=== PATIENT | female | born 1980 | race Native Hawaiian/Other Pacific Islander ===

== ENCOUNTER 2022-04-05 16:20 | Emergency (ER) | payer MEDICAID ==
[~2022-04-05] VITALS: Ht 152.4 cm; Wt 104.5 kg
[~2022-04-05 16:20] MED LIST: IPRATROPIUM BROM3 M1 IH; TUMS500 MG PO
[2022-04-05 18:23] LABS: BASO % 0.3 % (0.0-2.0); EOS # 0.3 K/mm3 (0.0-0.7); EOS % 4.2 % (0.0-4.0); GRAN # 4.3 K/mm3 (1.4-6.5); GRAN % 69.3 % (42.2-75.2); LYMPH # 1.1 K/mm3 (1.2-3.4); LYMPH % 17.6 % (20.0-51.0); MEAN CELL VOLUME 103 fl (80.0-100.0); MEAN CORPUSCULAR HGB CONC 31 g/dl (33.0-37.0); MEAN PLATELET VOLUME 9.7 fl (7.4-10.4); MONO # 0.5 K/mm3 (0.1-0.6); MONO % 8.1 % (1.7-9.3); PLATELET COUNT 154 K/mm3 (130-400); RED BLOOD COUNT 2.01 M/mm3 (4.10-5.30); REDCELL DISTRIBUTION WIDTH-CV 18.6 % (11.5-14.5)
[2022-04-05 18:25] LABS: HEMATOCRIT 20.6 % (37.0-47.0); HEMOGLOBIN 6.3 g/dl (12.5-16.0); MEAN CORPUSCULAR HEMOGLOBIN 31 pg (27-31)
[2022-04-05 18:32] LABS: INR 1.2 (0.8-3.0); PROTHROMBIN TIME 14.3 SECONDS (9.7-12.8)
[2022-04-05 18:52] LABS: ARTERIAL BLD GAS O2 SATURATION 99.1 % (92-100); ARTERIAL BLD GAS TCO2 CT 9.3; ARTERIAL BLOOD GAS HCO3 8.5 meq/L (22-26); ARTERIAL BLOOD GAS PCO2 26.1 mmHg (35-45)
[2022-04-05 18:54] LABS: ARTERIAL BLOOD GAS PO2 202.6 mmHg (80-100); ARTERIAL BLOOD GAS pH 7.13 (7.35-7.45)
[2022-04-05 18:56] LABS: TROPONIN-I 0.011 ng/mL (0.00-0.033)
[2022-04-05 18:58] LABS: ALANINE AMINOTRANSFERASE 7 U/L (0-55); ALBUMIN 3.1 gm/dL (3.5-5.0); ALKALINE PHOSPHATASE 81 U/L (40-150); ANION GAP 18 mmol/L (7-16); AST,SGOT 17 U/L (5-34); BILIRUBIN,TOTAL 0.5 mg/dL (0.2-1.2); CALCIUM 6.1 mg/dL (8.4-10.2); CHLORIDE 113 mmol/L (98-107); CREATININE, serum 10.82 mg/dL (0.57-1.11); GLUCOSE 81 mg/dL (70-99); POTASSIUM 4.4 mmol/L (3.5-4.5); SODIUM 139 mmol/L (136-145); TOTAL PROTEIN 8.2 gm/dL (6.2-8.1)
[2022-04-05 19:03] LABS: BLOOD UREA NITROGEN > 125 mg/dL (7-19)
[2022-04-05 19:05] LABS: CARBON DIOXIDE 8 mmol/L (22-29)
[2022-04-05 21:10] VITALS: BP 176/81; PULSE 72; TEMP 97.8
[2022-04-05 21:26] VITALS: BP 146/78; PULSE 72; TEMP 98
[2022-04-05 22:37] VITALS: BP 142/85; PULSE 74; TEMP 98.2
[2022-04-05 23:10] VITALS: BP 146/87; PULSE 76; TEMP 98.4
[2022-04-06 00:46] VITALS: BP 144/84; PULSE 85; TEMP 98.4
== END 2022-04-06 00:47 | disposition home or self-care (01) ==
LOC: COL.ER 16:20
PROVIDERS: Nurse Practitioner
DX: I12.0 Hypertensive chronic kidney disease with stage 5 chronic kidney disease or end stage renal disease (principal); E11.22 Type 2 diabetes mellitus with diabetic chronic kidney disease; N18.6 End stage renal disease; D63.1 Anemia in chronic kidney disease; Z91.15 Patient's noncompliance with renal dialysis; Z99.2 Dependence on renal dialysis; Z28.310 Unvaccinated for COVID-19
CPT/HCPCS: P9016

== ENCOUNTER 2022-04-17 12:18 | Inpatient (IN) | payer MEDICAID ==
[~2022-04-17] VITALS: Ht 154.9 cm; Wt 100.1 kg
[2022-04-17] VITALS (194 sets, daily range): BP systolic 108–148; BP diastolic 47–67; PULSE 76–89; TEMP 97.3–97.4; O2SAT 92–100
--- NOTE | 2022-04-17 12:55 | NUR ---
Blood sugar check and is 74. Patient shaky and sweaty. NARINDER Wetzel notified.
[2022-04-17 13:25] LABS: BASO % 0.4 % (0.0-2.0); EOS # 0.2 K/mm3 (0.0-0.7); EOS % 2.3 % (0.0-4.0); GRAN # 5.7 K/mm3 (1.4-6.5); GRAN % 73.4 % (42.2-75.2); LYMPH # 1.3 K/mm3 (1.2-3.4); LYMPH % 16.9 % (20.0-51.0); MEAN CELL VOLUME 102 fl (80.0-100.0); MEAN CORPUSCULAR HGB CONC 30 g/dl (33.0-37.0); MEAN PLATELET VOLUME 10.2 fl (7.4-10.4); MONO # 0.5 K/mm3 (0.1-0.6); MONO % 6.4 % (1.7-9.3); PLATELET COUNT 171 K/mm3 (130-400); RED BLOOD COUNT 2.05 M/mm3 (4.10-5.30); REDCELL DISTRIBUTION WIDTH-CV 18.3 % (11.5-14.5)
[2022-04-17 13:30] LABS: HEMATOCRIT 20.8 % (37.0-47.0); HEMOGLOBIN 6.3 g/dl (12.5-16.0); MEAN CORPUSCULAR HEMOGLOBIN 31 pg (27-31)
--- NOTE | 2022-04-17 13:35 | NUR ---
Received critical value from venous blood gases. Dr. Rea and NARINDER Tipton notified.
[2022-04-17 13:42] LABS: ANION GAP 19 mmol/L (7-16); CHLORIDE 112 mmol/L (98-107); GLUCOSE 77 mg/dL (70-99); SODIUM 137 mmol/L (136-145)
[2022-04-17 13:45] LABS: BLOOD UREA NITROGEN > 125 mg/dL (7-19)
[2022-04-17 13:48] LABS: CARBON DIOXIDE 6 mmol/L (22-29)
[2022-04-17 13:49] LABS: CALCIUM 5.7 mg/dL (8.4-10.2)
[2022-04-17 15:03] LABS: ALBUMIN 2.9 gm/dL (3.5-5.0); BILIRUBIN,TOTAL 0.6 mg/dL (0.2-1.2); CREATININE, serum 13.27 mg/dL (0.57-1.11); MAGNESIUM 1.8 mg/dL (1.6-2.6); PHOSPHOROUS 11.2 mg/dL (2.3-4.7); TOTAL PROTEIN 7.3 gm/dL (6.2-8.1)
[2022-04-17 15:06] LABS: CALCIUM 5.4 mg/dL (8.4-10.2)
--- NOTE | 2022-04-17 16:00 | NUR ---
PT ARRIVED FROM AMBULATORY. PT PLACED ON MONITORS. PT POOR HISTORIAN. PT REPORTS LAST DIALYSIS 01/2022. PT REPORTS SHE DOES NOT HAVE A PCP AND DOES NOT TAKE ORAL MEDICATIONS. PT RFEPORTS ONLY USING NEBULIZER AT HOME PRN, NO OTHER MEDICATIONS TAKEN DAILY OR PRN. PROVIDERS NOTIFIED OF PT'S ARRIVAL TO UNIT.
[2022-04-17 19:28] LABS: CREATININE, serum 13.36 mg/dL (0.57-1.11); POTASSIUM 4.9 mmol/L (3.5-4.5)
[2022-04-17 19:30] LABS: CALCIUM 5.9 mg/dL (8.4-10.2)
--- NOTE | 2022-04-17 19:35 | NUR ---
patient trasnferred to surgical floor at 192. dropped off at dialysis with kelly howell at 1930.
[2022-04-17 21:35] LABS: CALCIUM 7.1 mg/dL (8.4-10.2); CREATININE, serum 7.59 mg/dL (0.57-1.11); POTASSIUM 3.2 mmol/L (3.5-4.5)
[2022-04-17 22:43] LABS: HEMATOCRIT 20.9 % (37.0-47.0); HEMOGLOBIN 6.8 g/dl (12.5-16.0)
[2022-04-18] VITALS (20 sets, daily range): BP systolic 126–157; BP diastolic 51–89; PULSE 70–90; TEMP 97.8–98.9
[2022-04-18 06:34] LABS: BASO % 0.2 % (0.0-2.0); EOS # 0.1 K/mm3 (0.0-0.7); EOS % 2.6 % (0.0-4.0); GRAN # 3.6 K/mm3 (1.4-6.5); GRAN % 78.5 % (42.2-75.2); LYMPH # 0.5 K/mm3 (1.2-3.4); MEAN CORPUSCULAR HGB CONC 32 g/dl (33.0-37.0); MEAN PLATELET VOLUME 9.9 fl (7.4-10.4); MONO # 0.4 K/mm3 (0.1-0.6); MONO % 8.3 % (1.7-9.3); PLATELET COUNT 149 K/mm3 (130-400); REDCELL DISTRIBUTION WIDTH-CV 18.6 % (11.5-14.5)
[2022-04-18 06:39] LABS: HEMATOCRIT 19.8 % (37.0-47.0); HEMOGLOBIN 6.4 g/dl (12.5-16.0); MEAN CELL VOLUME 94 fl (80.0-100.0); MEAN CORPUSCULAR HEMOGLOBIN 30 pg (27-31)
[2022-04-18 06:50] LABS: CALCIUM 6.6 mg/dL (8.4-10.2); CREATININE, serum 7.79 mg/dL (0.57-1.11); PHOSPHOROUS 6.3 mg/dL (2.3-4.7); POTASSIUM 3.2 mmol/L (3.5-4.5)
--- NOTE | 2022-04-18 10:13 | NUR ---
DANA met with the patient to discuss discharge plan. The patient was able to answer some of DANA's questions. The patient lives in [place] with her family. She reports independence with ADLs. It is undetermined if the patient has a PCP. She was just established with Medicaid. The patient has her sister, Jody (ph#[phone]), as her person to notify and next of kin. The patient states that she is not and has one child, Staci, that is [id number]. The patient states that she was set up to receive dialysis on M//. SW attempted to contact the patient's sister. The mailbox was full and DANA was unable to leave a message. DANA contacted Amalia at [facility] to follow up on if the patient is set up there. Amalia reports that the patient was just set up with them and was suppose to start dialysis there today. She states that the patient showed up on Saturday to get dialysis, but she had no access or CVC catheter placed. The patient is having a dialyis catheter placed while here. Amalia states that the patient's chair time is M/W/F at 1130. Amalia asked that we keep her updated on the patient's discharge date. Amalia ph#[phone]. *Discharge plan: home with family*
[2022-04-18 10:14] LABS: CALCIUM 6.6 mg/dL (8.4-10.2); CREATININE, serum 8.14 mg/dL (0.57-1.11); POTASSIUM 3.2 mmol/L (3.5-4.5)
--- NOTE | 2022-04-18 14:46 | NUR ---
Jessica: Church Situation: Rotary Bar Operator stopped by room on rounds Background: PT was resting Assessment: Pt has no needs and appreciated the visit Recommendation: Rotary Bar Operator will follow up as needed
[2022-04-18 15:07] LABS: BASO % 0.6 % (0.0-2.0); EOS # 0.2 K/mm3 (0.0-0.7); EOS % 3.1 % (0.0-4.0); GRAN % 73.3 % (42.2-75.2); LYMPH # 0.6 K/mm3 (1.2-3.4); MEAN CELL VOLUME 93 fl (80.0-100.0); MEAN CORPUSCULAR HGB CONC 33 g/dl (33.0-37.0); MEAN PLATELET VOLUME 9.6 fl (7.4-10.4); MONO # 0.6 K/mm3 (0.1-0.6); MONO % 11.6 % (1.7-9.3); PLATELET COUNT 151 K/mm3 (130-400); RED BLOOD COUNT 2.68 M/mm3 (4.10-5.30); REDCELL DISTRIBUTION WIDTH-CV 18.4 % (11.5-14.5)
[2022-04-18 15:14] LABS: CALCIUM 7.8 mg/dL (8.4-10.2); CREATININE, serum 4.28 mg/dL (0.57-1.11); POTASSIUM 3.2 mmol/L (3.5-4.5)
[2022-04-18 15:18] LABS: HEMOGLOBIN 8.2 g/dl (12.5-16.0); MEAN CORPUSCULAR HEMOGLOBIN 31 pg (27-31)
[2022-04-18 18:05] LABS: CALCIUM 7.8 mg/dL (8.4-10.2); CREATININE, serum 4.33 mg/dL (0.57-1.11); POTASSIUM 3.3 mmol/L (3.5-4.5)
[2022-04-18 22:19] LABS: CALCIUM 7.1 mg/dL (8.4-10.2); CREATININE, serum 4.97 mg/dL (0.57-1.11)
[2022-04-19 00:06] VITALS: BP 114/45; PULSE 88; TEMP 97.8
--- NOTE | 2022-04-19 03:03 | NUR ---
PATIENT IN BED. ALERT AND ORIENTED. DENIES PAIN. INT R UPPER ARM PATENT AND FLUSHED. FISTULA TO L ARM HAS THRILL AND BRUIT PRESENT. L IJ DIALYSIS CATH CDI.
[2022-04-19 04:06] VITALS: BP 118/43; PULSE 84; TEMP 98.3
[2022-04-19 07:48] VITALS: BP 151/69; PULSE 79; TEMP 98.8
--- NOTE | 2022-04-19 08:00 | NUR ---
PATIENT IS A&O. PRIMARY LANGUAGE IS ZIMBABWEAN. PATIENT DOES SPEAK CUBAN PRETTY WELL AND IS ABLE TO VERBALIZE UNDERSTANDING DURING ASSESSMENT. PATIENT HAS HX OF CKD AND REPORTS SHE WAS NOT ABLE TO AFFORD HER DIALYSIS TREATMENTS AND STOPPED GOING IN JANUARY. ON ADMIT, PATIENT'S CREATININE WAS 13.40 AND IS NOW 4.97 AFTER GETTING DIALYSIS THE LAST TWO DAYS. PATIENT HAS A LEFT UPPER ARM FISTULA WITH GOOD BRUITT & THRILL. PATIENT REPORTS THE FISTULA HAS NOT NEED UESED YET. LEFT CHEST HD CATH TO INT. RIGHT UA IV TO INT. PATIENT IS NON-COMPLIENT WITH HER RENAL DIET DUE TO HER CULTURAL. FAMILY BRINGS IN ALL HER FOOD. VSS ON TELE. HEAD TO TOE ASSESSMENT COMPLETE. PT/OT CONSULTED. PATIENT INDEPENDENT IN ROOM. SCD'S CURRENTLY OFF. NO OTHER NEEDS AT THIS TIME. CALL LIGHT IN REACH.
[2022-04-19 11:32] VITALS: BP 149/78; PULSE 72; TEMP 98.6
--- NOTE | 2022-04-19 12:00 | NUR ---
PATIENT TRANSFERING DOWN TO MEDICAL UNIT, ROOM 319. CALLED REPORT TO GATITO DUARTE. PATIENT AWARE OF TRANSFER AND PERSONAL BELONGINGS MOVED TO 319. PATIENT ESCORTED DOWN VIA WC.
--- NOTE | 2022-04-19 12:18 | NUR ---
PT TRANSFERED TO ROOM FROM MEDICAL UNIT. PT SITTING UP ON COUCH IN ROOM ON ROOM AIR. PT STATES NO PAIN/NEEDS/CONCERNS AT THIS TIME. PT STATES THAT SHE HAS FOOD AT BEDSIDE AND DOES NOT NEED LUNCH. CALL LIGHT WAS GIVEN TO PT AND ORIENTED TO USE. PT VOICES UNDERSTANDING.
[2022-04-19 15:30] VITALS: BP 166/77; PULSE 70; TEMP 98.4
--- NOTE | 2022-04-19 18:30 | NUR ---
PT SITTING UP IN BED ON ROOM AIR. PT STATES THAT SHE IS DONE WITH DINNER TRAY. TRAY WAS REMOVED. PT STATES NO OTHER NEEDS/CONCERNS AT THIS TIME. CALL LIGHT IS WITHIN REACH.
[2022-04-19 20:19] VITALS: BP 153/71; PULSE 79; TEMP 98.5
[2022-04-20] VITALS (18 sets, daily range): BP systolic 108–171; BP diastolic 45–92; PULSE 75–102; TEMP 97.8–99.3
--- NOTE | 2022-04-20 05:15 | NUR ---
ASSESSMENT COMPLETE FOR [employer]. PT RESTING IN BED NAPPING. PT DENIED GENERAL PAIN, CHEST PAIN, PALPITATIONS, SOB, N,V,D OR DIZZINESS. PT HAD AN UNEVENTFUL NIGHT. PT EXPRESSED NO ADDITIONAL NEEDS AT THIS TIME. CALL LIGHT WITHIN REACH.
[2022-04-20 06:59] LABS: BASO % 0.4 % (0.0-2.0); EOS # 0.2 K/mm3 (0.0-0.7); EOS % 3.8 % (0.0-4.0); GRAN # 2.9 K/mm3 (1.4-6.5); GRAN % 58.6 % (42.2-75.2); LYMPH # 1.1 K/mm3 (1.2-3.4); LYMPH % 22.4 % (20.0-51.0); MEAN CELL VOLUME 96 fl (80.0-100.0); MEAN CORPUSCULAR HGB CONC 32 g/dl (33.0-37.0); MEAN PLATELET VOLUME 10.3 fl (7.4-10.4); MONO # 0.7 K/mm3 (0.1-0.6); MONO % 14.6 % (1.7-9.3); PLATELET COUNT 145 K/mm3 (130-400); REDCELL DISTRIBUTION WIDTH-CV 18.3 % (11.5-14.5)
[2022-04-20 07:17] LABS: CALCIUM 6.8 mg/dL (8.4-10.2); CREATININE, serum 6.5 mg/dL (0.57-1.11); HEMATOCRIT 22.1 % (37.0-47.0); MEAN CORPUSCULAR HEMOGLOBIN 30 pg (27-31); POTASSIUM 3.2 mmol/L (3.5-4.5)
--- NOTE | 2022-04-20 08:10 | NUR ---
PT SITTING UP IN BED FINISHING BREAKFAST. PT STATES NO PAIN/DISCOMFORT AT THIS TIME. INFORMED PT THAT SHE WOULD BE GOING TO DIALYSIS TODAY. PT VOICES UNDERSTANDING. PT STATES NO NEEDS/CONCERNS AT THIS TIME. CALL LIGHT IS WITHIN REACH.
--- NOTE | 2022-04-20 15:15 | NUR ---
PT OFF FLOOR TO SURG
--- NOTE | 2022-04-20 15:21 | NUR ---
Hospitalist advised patient will discharge today after her dialysis cath is placed. DANA contacted [facility] RN and provided update. DANA also faxed clinical updates. DANA was contacted by Ghislaine Neuroradiologist through [employer] and SW provided discharge update.
[2022-04-20] MEDS ORDERED: SODIUM BICARBO650 MG PO ×2 (16:31)
--- NOTE | 2022-04-20 16:50 | NUR ---
PT RETURNED FROM SURG. DRESSING TO LEFT COLLARBONE AREA IS DRY AND INTACT. PT STATES NO PAIN/ DISCOMFORT AT THIS TIME. PT WAS PUT ON VITAL MACHINE AND STARTED ON Q15 VITIALS. PT STATES SHE WOULD LIKE TO HAVE SOME DINNER. DINNNER TRAY WAS ORDERED FOR HER. NO OTHER NEEDS/CONCERNS WERE VOICED. CALL LIGHT IS WITHIN REACH.
--- NOTE | 2022-04-20 18:22 | NUR ---
PT SITTING UP ON COUCH IN ROOM ON ROOM AIR. DRESSING TO LEFT TUNNELED DIALYSIS CATH IS DRY AND INTACT. PT STATES NO PAIN/DISCOMFORT AT THIS TIME. DELORES TUCKER STATES THAT PT WILL BE DISCHARGED WHEN RETURNED FROM SURG, WAS TOLD TO CALL WHEN PT RETURNED TO FLOOR. WAS CALLED AND HE STATES THAT BECAUSE IT IS SO LATE AND SHE JUST GOT OUT OF SURG THEN WE WILL WAIT UNTIL IN THE AM. PT WAS INFORMED AND VOICED UNDERSTANDING. PT GOT DINNER TRAY AND TOLERATED WELL. PT STATES NO NEEDS/CONCERNS AT THIS TIME. CALL LIGHT IS WITHIN REACH.
--- NOTE | 2022-04-20 21:14 | NUR ---
PT LAYING IN BED RESTING QUIETLY. PT DENIES ANY PAIN AT THIS TIME. DIALYSIS ACCESS TO LEFT CHEST NOTED. COVERED WITH GAUZE. SUTURES INTACT. NO REDNESS NOTED.
[2022-04-21 04:34] VITALS: BP 107/60; PULSE 96; TEMP 98.8
[2022-04-21 07:24] VITALS: BP 122/56; PULSE 85; TEMP 98.6
--- NOTE | 2022-04-21 08:43 | NUR ---
PT SITTING UP IN BED. MORNING MEDICATIONS GIVEN. SHIFT ASSESSMENT COMPLETED. PT DENIES ANY PAIN OR NEEDS. IS EAGER FOR D/C, UPDATED PT ON POC. CONTINUING TO MONITOR.
[2022-04-21 11:27] VITALS: BP 118/63; PULSE 83; TEMP 98.4
--- NOTE | 2022-04-21 11:27 | NUR ---
SW tried to contact Amalia at [facility] @11:28 AM inform her that pt is DC today. Amalia voicemail is full and no message was left. I will try back later.
[2022-04-21] MEDS ORDERED: PHOS LO PO (12:24)
--- NOTE | 2022-04-21 13:23 | NUR ---
DISCHARGE INSTRUCTION GIVEN, ALL QUESTIONS GIVEN. IV D/C. TELE D/C. PT ESCORTED DOWN WITH PERSONAL BELONGINGS. WILL D/C FROM SYSTEM.
--- NOTE | 2022-04-21 15:06 | NUR ---
THIS RN WAS CONTACTED BY DR. ALEJO AND ASKED TO NOTIFY PT TO KEEP DIALYSIS CATH AWAY FROM WATER. THIS RN CONTACTED PT'S FAMILY MEMBER AND INFORMED THEM OF THIS.
== END 2022-04-21 13:24 | disposition home or self-care (01) | DRG 673 ==
LOC: SDCO 12:18 → MEDICAL 17:38 → SURG 17:38 → ICU 17:38 → SURG 19:28 → MEDICAL 04-19 11:52
PROVIDERS: Physician Assistant; Surgery; ADMIT Internal Medicine
PROC: 05HN33Z Insertion of Infusion Device into Left Internal Jugular Vein, Percutaneous Approach (ICD-10-PCS; 2022-04-17)
PROC: B5141ZA Fluoroscopy of Left Jugular Veins using Low Osmolar Contrast, Guidance (ICD-10-PCS; 2022-04-17)
PROC: 5A1D70Z Performance of Urinary Filtration, Intermittent, Less than 6 Hours Per Day (ICD-10-PCS; 2022-04-17)
PROC: 30243N1 Transfusion of Nonautologous Red Blood Cells into Central Vein, Percutaneous Approach (ICD-10-PCS; 2022-04-17)
PROC: 05PY33Z Removal of Infusion Device from Upper Vein, Percutaneous Approach (ICD-10-PCS; 2022-04-20)
PROC: 02H633Z Insertion of Infusion Device into Right Atrium, Percutaneous Approach (ICD-10-PCS; 2022-04-20)
PROC: B5181ZA Fluoroscopy of Superior Vena Cava using Low Osmolar Contrast, Guidance (ICD-10-PCS; 2022-04-20)
PROC: 0JH63XZ Insertion of Tunneled Vascular Access Device into Chest Subcutaneous Tissue and Fascia, Percutaneous Approach (ICD-10-PCS; principal; 2022-04-20 15:30)
DX: I12.0 Hypertensive chronic kidney disease with stage 5 chronic kidney disease or end stage renal disease (principal); J96.01 Acute respiratory failure with hypoxia; N18.6 End stage renal disease; N17.9 Acute kidney failure, unspecified; E87.2 Acidosis; D62 Acute posthemorrhagic anemia; D63.1 Anemia in chronic kidney disease; E11.22 Type 2 diabetes mellitus with diabetic chronic kidney disease; J45.909 Unspecified asthma, uncomplicated; E87.5 Hyperkalemia; E83.51 Hypocalcemia; E83.39 Other disorders of phosphorus metabolism; E87.70 Fluid overload, unspecified; E83.52 Hypercalcemia; Z99.2 Dependence on renal dialysis
CPT/HCPCS: C1750; J0610; J0690; J1644; J2405; J2704; J3010; J7030; P9016; Q5105

== ENCOUNTER 2022-04-30 18:36 | Emergency (ER) | payer MEDICAID ==
[~2022-04-30] VITALS: Ht 157.5 cm; Wt 99.4 kg
[~2022-04-30 18:36] MED LIST changes: +PHOS LO PO; +SODIUM BICARBO650 MG PO
[2022-04-30 18:49] VITALS: TEMP 98
[2022-04-30 23:40] VITALS: BP 136/66; PULSE 79
== END 2022-04-30 23:40 | disposition home or self-care (01) ==
LOC: COL.ER 18:36
DX: K59.00 Constipation, unspecified (principal); Z28.310 Unvaccinated for COVID-19

== ENCOUNTER → 2022-06-05 | Outpatient (CLI) | payer MEDICAID | LOC: COL.RAD 10:50 | DX: T82.590A Other mechanical complication of surgically created arteriovenous fistula, initial encounter (principal); I77.89 Other specified disorders of arteries and arterioles ==

== ENCOUNTER 2022-07-12 07:40 | Day surgery (SDC) | payer MEDICAID ==
[~2022-07-12] VITALS: Ht 160 cm; Wt 90.8 kg
[2022-07-12 08:47] VITALS: BP 106/61; PULSE 98; TEMP 98.8
[2022-07-12 09:05] LABS: CALCIUM 7.7 mg/dL (8.4-10.2); CREATININE, serum 4.75 mg/dL (0.57-1.11)
[2022-07-12 09:09] LABS: POTASSIUM 2.8 mmol/L (3.5-4.5)
--- NOTE | 2022-07-12 10:10 | NUR ---
0910 DR. YU NOTIFIED OF LAB REPORTS. 0962 DR. YU IN TO VISIT WITH PATIENT. 1005 IV DC'D WITH CATHETER INTACT. PATIENT THEN DRESSES SELF. 1010 DISCHARGED AMBULATORY, ACCOMPANIED BY SON.
[2022-07-17] MEDS ORDERED: NORCO 325 MG-51 TAB PO (09:21)
== END 2022-07-12 10:10 | disposition home or self-care (01) ==
LOC: SDCO 07:40
PROVIDERS: Surgery
DX: N18.6 End stage renal disease (principal); Z53.8 Procedure and treatment not carried out for other reasons; I77.0 Arteriovenous fistula, acquired; R88.8 Abnormal findings in other body fluids and substances
CPT/HCPCS: J2704; J3010; J7030